=== PATIENT | male | born 1930 | race Caucasian/White ===

== ENCOUNTER 2018-06-23 20:52 | Inpatient (IN) | payer MEDICARE ==
[~2018-06-23 20:52] MED LIST: ISOVUE-370 76%-LOCM 1 ML ONE
[2018-06-23] MEDS ORDERED: Aspirin Chewable 81 MG TAB ONE (21:32)
[2018-06-23] MEDS ORDERED: Nitroglycerin 2% Ointment 1 INCH/1 GM Packet ONE (21:32)
[2018-06-23] MEDS ORDERED: Acetaminophen 500 MG TAB ONE (21:32)
--- NOTE | 2018-06-23 21:37 | RAD ---
FExam: Chest one view HISTORY:Fall, LOC, pain Comparison: None FINDINGS: Lungs: No masses or consolidation. Cardiac silhouette: Normal size Pulmonary vessels: Normal Pleural Spaces: Clear Pneumothorax: None Metallic clips are seen at the right neck. Osseous abnormalities: None of acuity. IMPRESSION: No focal consolidation.
[2018-06-23 21:49] LABS: Hemoglobin 12.6 g/dL (14.0-18.0); Mean Corpuscular HGB CONC 32.9 g/dL (32.0-36.0); Mean Corpuscular Hemoglobin 29.7 pg (27.0-31.0); Mean Corpuscular Volume 90.5 fL (78.0-98.0); Mean Platelet Volume 7.3 fL (7.4-10.4); Platelet Count 284 thou/uL (130-400); RBC Distribution Width 14.1 % (11.5-14.5); Red Blood Cell (RBC) Count 4.23 mill/uL (4.70-6.10); White Blood Cell (WBC) Count 8.9 thou/uL (4.8-10.8)
[2018-06-23 22:05] LABS: ALT (SGPT) 538 U/L (8-55); AST (SGOT) 531 U/L (5-34); Albumin 4.1 g/dL (3.4-4.8); Alkaline Phosphatase 247 U/L (40-150); Anion Gap 18 mmol/L (10-20); BUN (Urea Nitrogen) 16 mg/dL (8.4-25.7); Bilirubin, Total 5.3 mg/dL (0.2-1.2); CK (CPK) 67 U/L (30-200); Calc. Creatinine Clearance 0 mL/min (70-130); Calcium 9.3 mg/dL (7.8-10.44); Carbon Dioxide 22 mmol/L (23-31); Chloride 101 mmol/L (98-107); Estimated GFR-MDRD 70; Globulin 2.7 g/dL (2.4-3.5); Glucose 93 mg/dL (83-110); Potassium 3.2 mmol/L (3.5-5.1); Protein, Total 6.8 g/dL (5.8-8.1); Sodium 138 mmol/L (136-145)
--- NOTE | 2018-06-23 22:07 | CT ---
FCT Face, noncontrast: CLINICAL INDICATION: Fall with facial injury, pain. FINDINGS: There is a large hematoma of the right frontal scalp and right periorbital soft tissues. Th ere is mild displacement of fracture fragmentation involving floor of right orbit. There is communica tion with the right maxillary sinus with a prominent acute fluid level. No evidence of retrobulbar he matoma. Eek intraocular lenses are absent. No acute, displaced nasal bone fracture. Evidence of ac [place] on chronic sphenoid sinusitis. IMPRESSION: Right orbital floor fracture. Prominent right frontal scalp and periorbital soft tissue hematoma. Acute hemorrhagic fluid level of the right maxillary sinus related to right orbital floor fracture. Transcribed Date/Time: 06/23/2018 10:21 PM
--- NOTE | 2018-06-23 22:07 | CT ---
FCT Brain WO Con: 06/23/2018 9:24 PM CLINICAL HISTORY: Syncope and collapse with fall. COMPARISON: None. FINDINGS: Hemorrhage: Mild subarachnoid hemorrhage is seen at the left frontal sulci.. Ventricular system: Compensatory dilatation related to parenchymal volume loss. There is prominence o f the extra-axial spaces. Cerebral parenchyma: Microvascular ischemic disease Midline shift: None. Mass: No mass effect. Calvarium: No depressed calvarial fracture. Visualized Paranasal sinuses: Opacification with fluid level involving right maxillary sinus, and rig ht major sphenoid air cell. Right frontal scalp hematoma. IMPRESSION: Acute subarachnoid hemorrhage. Notification placed to ER care provider at time of dictation.
--- NOTE | 2018-06-23 22:12 | CT ---
FIndication: Pain/Injury COMPARISON: None FINDINGS: Acute fracture/subluxation: Chronic appearing fracture fragmentation is seen involving spinous proces ses of C6 and C7. Subtle lucency with cortication and absence of complete cortical discontinuity invo lving the right lamina of T2 is instantly imaged and likely relates to a vascular canal. Mild irregularity, age indeterminate, is present involving the left occipital condyle. Spinal alignment: Multilevel subluxation as well as prominent kyphosis, likely due to extensive degen erative disease Vertebral body heights: No definite acute compression fracture Cervical spine degenerative change: Severe multilevel degenerative change IMPRESSION: Severe degenerative change and findings which indicate sequela from prior injury involving the cervic al spine. Age-indeterminate mild osseous irregularity at the left occipital condyle. Correlate clinically. Transcribed Date/Time: 06/23/2018 10:23 PM
[2018-06-23 22:19] LABS: Band 9 % (5-11); Hypochromia SLIGHT = 6-15 cells (100X) (0-5/hpf); Lymphocytes 3 % (21-51); MDiff Complete? YES; Monocytes 4 % (0-10); Neutrophil 84 % (42-75); Platelet Morphology Comment Appears Adequate
[2018-06-23 22:41] LABS: INR-International Normal Ratio 1.1; Prothrombin Time 14.1 SEC (12.0-14.7)
[2018-06-23 22:42] LABS: PTT 29.8 SEC (22.9-36.1)
[2018-06-23] MEDS ORDERED: Senokot S 8.6-50 MG TAB PO PRN (23:08)
[2018-06-23] MEDS ORDERED: Acetaminophen 325 MG TAB PO PRN (23:08)
[2018-06-23] MEDS ORDERED: Ondansetron PF 4 MG/2 ML Vial IVP PRN (23:08)
[2018-06-23] MEDS ORDERED: Sodium Chloride 0.9% 1,000 ML IV SCH (23:15)
[2018-06-23] MEDS ORDERED: Sodium Chloride 0.9% (PF) 10 ML VIAL FS PRN (23:29)
[2018-06-24 00:18] VITALS: BMI 23.3
[2018-06-24] MEDS ORDERED: Dextrose 5% in Water 1,000 ML IV PRN (01:15)
[2018-06-24] MEDS ORDERED: Acetaminophen 1,000 MG in Premix Bag 1 BAG IVPB SCH ×2 (01:15→19:00)
[2018-06-24] MEDS ORDERED: Dextrose 50% Abboject 50 ML SYRINGE SLOW IVP PRN (01:15)
[2018-06-24] MEDS ORDERED: Acetaminophen 1,000 MG in Premix Bag 1 BAG IVPB PRN (01:15)
[2018-06-24] MEDS ORDERED: hydrALAZINE 20 MG/ML VIAL SLOW IVP PRN (01:15)
[2018-06-24] MEDS ORDERED: Ondansetron ODT 4 MG TAB PO PRN (01:15)
[2018-06-24] MEDS: Sodium Chloride 0.9% 1,000 ML IV SCH ×3 (01:29→18:59)
[2018-06-24] MEDS ORDERED: Piperacillin/Tazobactam 3.375 GM in Sodium Chloride 0.9% 100 ML IVPB SCH (01:30)
[2018-06-24 01:40] LABS: Lactic Acid 1.2 mmol/L (0.5-2.2)
--- NOTE | 2018-06-24 02:09 | HP ---
REQUESTING PHYSICIAN: Dr. Gan. ATTENDING SURGEON: Dr. Head. CONSULTATIONS: Neurosurgery, Dr. Mills. HISTORY OF PRESENT ILLNESS: The patient is an 87-year-old man who was walking with his when he fell, not a clear story is whether the patient tripped or if he just became dizzy and lightheaded. The patient is unable to tell us what happened. He does know that he was brought to the emergency department and was being admitted. The patient was brought to the emergency department where he underwent evaluation and examination and was noted to have a contusion to his right periorbital area. CT scan showed a subarachnoid hemorrhage on the left and possible acute cervical spinous process fractures. The patient was also noted to have an elevated bilirubin and elevated D-dimer. Evaluation of these started while he was in the emergency room and will continue once he is settled up in the critical care unit. The patient's history is somewhat difficult to obtain as none of his family members were in the emergency department and the ambulance report did state that at some point the patient had chest pain, but otherwise is not helpful. ALLERGIES: NONE. CURRENT MEDICATIONS: 1. Metoprolol. 2. Lumigan. 3. Olmesartan/HCTZ. 4. Clopidogrel. 5. Multivitamin. 6. Atorvastatin. 7. Aspirin. 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 PAST SURGICAL HISTORY: None. SOCIAL HISTORY: The patient lives at home with family. He denies drug, tobacco, or alcohol use. REVIEW OF SYSTEMS: A 10-point review of systems is negative as otherwise stated. The patient denies any recent weight losses, nausea, vomiting, or diarrhea. PHYSICAL EXAMINATION: VITAL SIGNS: Blood pressure 133/75, heart rate 110, respirations 14, oxygen saturation is 96% on room air, and temperature is 99.5. GENERAL: The patient is resting comfortably in bed. He has just been moved to the critical care unit. He is awake, alert, responsive, though does have some confusion and some repetitiveness asking his location. HEENT: Head is normocephalic. Face shows periorbital ecchymosis to the right eye. Otherwise, extraocular motion intact. PERRLA bilaterally. Ears are atraumatic without discharge. Nose, there is scant blood in the left naris. Oropharynx is clear. NECK: Currently immobilized in an [place] collar. His trachea is midline. There is no JVD. CHEST: Clear to auscultation with good inspiratory and expiratory effort. Heart is tachycardic and regular. ABDOMEN: Tender to palpation to the right upper quadrant with hypoactive bowel sounds. PELVIS: Stable. EXTREMITIES: Neurovascularly intact x4. The patient is noted to have a contusion on his anterior aspect of his right knee. There is very minimal swelling. BACK: Nontender and atraumatic. LABORATORY FINDINGS: White blood cell count 8.9, hemoglobin 12.6, hematocrit 38.3, platelets 284. Sodium 138, potassium 3.2, chloride 101, CO2 of 22, BUN 16, creatinine 1.01, glucose 93, lactic acid 2.2, total bilirubin 5.3, AST 531, ALT 538, alkaline phosphatase 247. CK 67, troponin 0.027. PT 14.1, INR 1.1, PTT 29.8. D-dimer 8.92. RADIOGRAPHIC DATA: CT of the brain without contrast shows a mild subarachnoid hemorrhage at the left frontal sulcus and a right frontal scalp hematoma. CT of the facial bones without contrast shows a right orbital floor fracture, prominent right frontal scalp, and periorbital soft tissue hematoma, and acute hemorrhagic fluid level of the right maxillary sinus related to the right orbital floor fracture. CT of the C-spine without contrast shows severe degenerative changes and findings which indicate sequelae of prior injury involving the cervical spine, age indeterminate, mild osseous irregularity at the left occipital condyle. Otherwise, no acute findings. CTA of the chest showed no evidence of pulmonary embolism, pneumothorax, or effusion. The patient was noted to have incidental finding of a nodule which radiology recommends followup in 3 months. AP chest x-ray showed no focal consolidation. ASSESSMENT: 1. Status post fall. 2. Subarachnoid hemorrhage. 3. Right orbital floor fracture. 4. Facial contusions. 5. Hyperbilirubinemia. 6. Transaminitis. PLAN: Plan will be to admit the patient to critical care unit for frequent neuro exams per Neurosurgery's recommendations. He will keep his [place] collar until re-evaluated. We will obtain a right upper quadrant ultrasounds. Keep the patient n.p.o., nonnarcotic pain medication, pulmonary toilet, gastritis and mechanical VTE prophylaxis. The evaluation, examination, laboratory, and radiographic findings will be discussed with Dr. Head after this dictation. Job ID: [id number]
--- NOTE | 2018-06-24 04:10 | CON ---
DATE OF CONSULTATION: This is Flex Larson PA-C dictating a report for Renato Mills MD. This is a 50-minute initial patient evaluation, of which greater than 50% of the exam was spent in counseling and coordinating the patient's care. Remainder of the exam was spent in review of the patient's medical records and formulation of treatment plan. CHIEF COMPLAINT: Status post presumed syncopal fall with trace left frontal traumatic subarachnoid hemorrhage. HISTORY OF PRESENT ILLNESS: Mr. Hernandez is a pleasant 87-year-old male, who presents to [facility] with his family for the above complaints. Apparently, the patient was walking with his earlier today, when he suddenly collapsed. She attempted to catch him, but unfortunately was unable to do this and he struck the right side of his face. He is on Plavix and aspirin for coronary artery disease, though he does not report any stroke history or cardiac surgery or history of VT. He does not use tobacco. He has noticed some fever and chills over the past few days as well. Review of the patient's head CT again notes trace left frontal traumatic subarachnoid hemorrhage without mass effect or midline shift. Review of patient's cervical spine CT notes some listhesis of C3 on C4 as well as some auto fusion at C4-C5 and what may be chronic but age indeterminate C5 and C6 spinous process fractures. PHYSICAL EXAMINATION: The patient is awake, alert, and appropriate. GCS currently is 15. He follows commands equally in all four extremities. He has by report right orbital fracture. Has significant swelling and ecchymosis to the right eye that makes it difficult for the patient to open his eye. 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 His pupils are equal, round, and reactive bilaterally. IMPRESSION AND DIAGNOSES: 1. Status post fall with trace left frontal traumatic subarachnoid hemorrhage. 2. Mild neck pain with possible C5-C6 spinous process fractures. PLAN: I have discussed the patient's case and imaging with Dr. Mills. At this time, the patient will be admitted to the ICU for close neurologic monitoring, although I have let the patient's family know that he likely will not need any type of neurosurgical intervention. We will plan to repeat his head CT at 6:00 a.m. tomorrow or sooner should his neurologic exam change. He is at slight increased risk of increased hemorrhage given the fact that he is on Plavix and aspirin and at this time, coags are pending. We will also place the patient in an [place] collar given his neck pain, although hopefully plan to remove it tomorrow. The patient will be n.p.o. at this time. We will also hold his Plavix and aspirin and likely plan for followup in our office in two weeks with holding his blood thinners and repeat head CT. But at this time, again, we will plan for repeat head CT in the morning or sooner should symptoms dictate and again, the patient and his family are very pleased with the workup at this time. Please call with any changes in patient's neurologic status. Job ID: [id number]
[2018-06-24 06:11] LABS: Band 15 % (5-11); Hemoglobin 10.8 g/dL (14.0-18.0); Hypochromia SLIGHT = 6-15 cells (100X) (0-5/hpf); Lymphocytes 2 % (21-51); MDiff Complete? YES; Mean Corpuscular HGB CONC 32.8 g/dL (32.0-36.0); Mean Corpuscular Hemoglobin 29.3 pg (27.0-31.0); Mean Corpuscular Volume 89.6 fL (78.0-98.0); Mean Platelet Volume 7.5 fL (7.4-10.4); Monocytes 3 % (0-10); Neutrophil 80 % (42-75); Platelet Count 255 thou/uL (130-400); Platelet Morphology Comment Appears Adequate; RBC Distribution Width 14.2 % (11.5-14.5); Red Blood Cell (RBC) Count 3.67 mill/uL (4.70-6.10); White Blood Cell (WBC) Count 15.9 thou/uL (4.8-10.8)
[2018-06-24] MEDS: Piperacillin/Tazobactam 3.375 GM in Sodium Chloride 0.9% 100 ML IVPB SCH ×3 (06:11→18:42)
[2018-06-24 06:13] LABS: Anion Gap 14 mmol/L (10-20); BUN (Urea Nitrogen) 16 mg/dL (8.4-25.7); Calc. Creatinine Clearance 60 mL/min (70-130); Calcium 8.4 mg/dL (7.8-10.44); Carbon Dioxide 20 mmol/L (23-31); Chloride 107 mmol/L (98-107); Estimated GFR-MDRD 85; Glucose 97 mg/dL (83-110); Potassium 3.5 mmol/L (3.5-5.1); Sodium 137 mmol/L (136-145)
--- NOTE | 2018-06-24 07:23 | CT ---
CTA CHEST WITH 3D VOLUME RENDERING WITH CONTRAST: Date: 06/23/18 INDICATION: Syncope with elevated D-Dimer. FINDINGS: There is no large filling defect of the pulmonary arteries to indicate acute pulmonary embolus. Scatt ered vascular disease is present, including coronary artery calcium. No effusion. There is patchy sub pleural opacity of the posterior lungs bilaterally. Nodular density is present within the lingula, wi th a linear oriented morphology. No evidence of pneumothorax. The osseous structures reveal degenerat yasmin change. IMPRESSION: 1. No large, central pulmonary embolus. 2. Reticulonodular opacity of the lingula. Given curvilinear morphology, this could represent an are a of subsegmental atelectasis. However, given a rounded, nodular component, that measures 1.5 cm in a xial dimension, recommend a short-term follow-up CT thorax in 3 months to re-evaluate. 3. Probable dependent atelectasis bilaterally. 4. Additional findings are discussed above. CODE LN.
--- NOTE | 2018-06-24 08:02 | CT ---
CT OF THE BRAIN WITHOUT CONTRAST: Date: 06/24/18 INDICATION: Follow-up subarachnoid hemorrhage. COMPARISON: Prior exam dated 06/23/18. FINDINGS: There is a small amount of subarachnoid hemorrhage layered within a sulcus of the anterior left front al lobe, which is stable to the prior exam. The widening of the extra-axial space overlying the cereb ral convexities, right greater than left, is stable. No midline shift is evident. Generalized cerebra l and cerebellar atrophy is similar appearing. Microvascular disease of the brain is stable. The righ t frontal scalp contusion is similar appearing. The air fluid level within the right maxillary sinus is stable appearing. IMPRESSION: 1. Stable examination of the brain. 2. Subarachnoid hemorrhage layered within a sulcus of the anterior left frontal lobe is stable. 3. Diffuse cerebral and cerebellar atrophy. 4. Extra-axial space widening of the cerebral convexities, right greater than left, is stable. POS: BH
--- NOTE | 2018-06-24 08:03 | ULT ---
GALLBLADDER ULTRASOUND: INDICATION: Pain. FINDINGS: No focal hepatic lesion. There are low-level echogenic gallbladder lumen indicative of sludge and/or gravel-like cholelithiasis. The gallbladder wall is thickened measuring 4-5 mm. Blanco's sign is r eported as positive by the supervisor sleeping bag department. The common duct is mildly dilated at 9 mm, for patient's age . IMPRESSION: 1. Findings which may relate to sludge/cholelithiasis and cholecystitis. Acute versus chronic is no t discerned on the basis of this exam. This could be further evaluated with HIDA scan (nuclear medic ine evaluation). 2. Mildly dilated common duct for patient's age. Correlate with biliary laboratory values. POS: CARLOS
[2018-06-24] MEDS ORDERED: Famotidine 20 MG TAB PO SCH (09:00)
[2018-06-24] MEDS ORDERED: Pantoprazole 40 MG VIAL IVP SCH (09:00)
[2018-06-24] MEDS: Pantoprazole 40 MG VIAL IVP SCH (09:21)
[2018-06-24 10:12] LABS: ALT (SGPT) 374 U/L (8-55); AST (SGOT) 318 U/L (5-34); Albumin 3.4 g/dL (3.4-4.8); Alkaline Phosphatase 181 U/L (40-150); Bilirubin, Direct 3.3 mg/dL (0.1-0.3); Bilirubin, Total 4.2 mg/dL (0.2-1.2); Protein, Total 5.7 g/dL (5.8-8.1)
[2018-06-24 10:26] LABS: Lipase 1174 U/L (8-78)
--- NOTE | 2018-06-24 12:02 | PRG ---
DATE OF SERVICE: DICTATED FOR: Renato Mills MD This is a 10-minute subsequent patient evaluation, in which greater than 50% of the exam was spent counseling and coordinating the patient's care. Remainder of the exam was spent in review of the patient's medical records and review of appropriate imaging studies. SUBJECTIVE: Mr. Hernandez is now hospital day #1 having sustained a fall with a chronic appearing right subdural hematoma, but acute left frontal traumatic subarachnoid hemorrhage. The patient overall states that he is doing fine today. His right eye swelling has improved, but he still has considerable ecchymosis surrounding the eye. He states his neck pain is better today. His GCS currently is 15 as he is alert, oriented to person, place, and time. He has full strength in all the extremities. He has no tenderness to palpation of the cervical spine. From neurosurgical perspective in review of his repeat head CT today shows stability of his chronic right subdural hematoma and stability of the left frontal traumatic subarachnoid hemorrhage. He does not require any type of neurosurgical intervention and I have let him know this. Our trauma colleagues are continuing to workup the patient's multiple medical comorbidities and he has remained off his aspirin and Plavix for remote history of left lower extremity DVT. We will continue to monitor the patient and ideally would like his blood pressure less than 150. We can safely remove his [place] collar. Please call with any change in the patient's neurologic status. Job ID: [id number]
[2018-06-24] MEDS ORDERED: Morphine 2 MG/ML SYRINGE ONE (12:53)
[2018-06-24] MEDS ORDERED: Sodium Chloride 0.9% 10 ML ONE (12:56)
--- NOTE | 2018-06-24 13:53 | NM ---
NUCLEAR MEDICINE HIDA SCAN: CLINICAL HISTORY: Pain. RADIOPHARMACEUTICAL: 5 mCi technetium 99m mebrofenin IV. FINDINGS: 60 minutes of the imaging is performed which reveals retained activity within the hepatic parenchyma and no significant excretion. Gallbladder is not visualized. Subsequently, 2 mg of morphine sulfate w as administered IV with subsequent delayed imaging for 30 minutes. Gallbladder remains nonvisualized. There is excreted activity seen at the level of the common duct with faint bowel activity. IMPRESSION: Nonvisualization of the gallbladder subsequent to administration of morphine sulfate. Findings are co nsistent with cystic duct obstruction. Transcribed Date/Time: 06/24/2018 2:06 PM
[2018-06-24] MEDS ORDERED: PHENYLEPHRINE-NS 100 MCG/ML 10 ML SYRINGE ONE (15:06)
[2018-06-24] MEDS ORDERED: Glycopyrrolate 0.2 MG/ML 5 ML SYRINGE ONE (15:06)
[2018-06-24] MEDS ORDERED: Rocuronium Bromide 10 MG/ML (10ML VIAL) ONE (15:06)
[2018-06-24] MEDS ORDERED: Esmolol 100 MG/10 ML VIAL ONE (15:06)
[2018-06-24] MEDS ORDERED: Dexamethasone 20 MG/5 ML VIAL ONE (15:06)
[2018-06-24] MEDS ORDERED: PROPOFOL 200 MG/20 ML VIAL ONE (15:06)
[2018-06-24] MEDS ORDERED: Ondansetron PF 4 MG/2 ML Vial ONE ×2 (15:06→18:32)
[2018-06-24] MEDS ORDERED: Lidocaine 1% PF 5 ML VIAL ONE (15:06)
[2018-06-24] MEDS ORDERED: Famotidine/PF 20 mg/2ml Vial ONE (16:11)
[2018-06-24] MEDS ORDERED: Fentanyl 100 MCG/2 ML VIAL ONE ×2 (16:11)
[2018-06-24] MEDS ORDERED: Iothalamate Meglumine 60% 50 ML VIAL FS ONE (16:15)
[2018-06-24] MEDS ORDERED: Bupivacaine/Epinephrine 0.25% 30 ML VIAL ONE (16:15)
[2018-06-24] MEDS ORDERED: Ondansetron HCl/PF 4 MG/2 ML Vial IVP PRN (17:57)
--- NOTE | 2018-06-24 18:27 | RAD ---
INTRAOPERATIVE CHOLANGIOGRAM: History: Cholecystectomy, acute cholecystitis. FINDINGS/IMPRESSION: Two spot fluoroscopic intraoperative images of the right upper quadrant during intraoperative cholang iogram demonstrate changes of cholecystectomy. There is opacification of the common bile duct, hepati c duct and some of their branches without filling defects. Contrast is seen in the pancreatic duct an d second portion of the duodenum. POS: JOSÉ
[2018-06-24] MEDS ORDERED: Promethazine HCl 25 MG/ML VIAL ONE (18:31)
[2018-06-24] MEDS ORDERED: Morphine 4 MG/ML VIAL SLOW IVP PRN (19:00)
[2018-06-24] MEDS ORDERED: Morphine 2 MG/ML SYRINGE SLOW IVP PRN (19:00)
[2018-06-24] MEDS ORDERED: Non-Formulary Item 1 EACH (Bimatoprost [Lumigan] 1 DROP) OP SCH (21:00)
[2018-06-24] MEDS ORDERED: Latanoprost 0.005% Ophth Soln 2.5 ml Bottle EA EYE SCH (21:00)
[2018-06-25] MEDS: Piperacillin/Tazobactam 3.375 GM in Sodium Chloride 0.9% 100 ML IVPB SCH ×3 (00:22→12:24)
[2018-06-25 04:39] LABS: #Lymphocytes 0.8 thou/uL (1.20-3.40); #Monocytes 0.2 thou/uL (0.11-0.59); #Neutrophils 11.8 thou/uL (1.40-6.50); %Eosinophils 0.1 % (0.0-10.0); %Monocytes 1.6 % (0.0-10.0); %Neutrophils 92.4 % (42.0-75.0); Hemoglobin 10.1 g/dL (14.0-18.0); Mean Corpuscular HGB CONC 31.3 g/dL (32.0-36.0); Mean Corpuscular Hemoglobin 28.4 pg (27.0-31.0); Mean Corpuscular Volume 90.7 fL (78.0-98.0); Mean Platelet Volume 7.5 fL (7.4-10.4); Platelet Count 272 thou/uL (130-400); RBC Distribution Width 14.2 % (11.5-14.5); Red Blood Cell (RBC) Count 3.58 mill/uL (4.70-6.10); White Blood Cell (WBC) Count 12.7 thou/uL (4.8-10.8)
[2018-06-25 04:56] LABS: ALT (SGPT) 246 U/L (8-55); AST (SGOT) 159 U/L (5-34); Albumin 3.2 g/dL (3.4-4.8); Alkaline Phosphatase 144 U/L (40-150); Anion Gap 12 mmol/L (10-20); BUN (Urea Nitrogen) 13 mg/dL (8.4-25.7); Bilirubin, Direct 1.1 mg/dL (0.1-0.3); Bilirubin, Total 1.6 mg/dL (0.2-1.2); Calc. Creatinine Clearance 72 mL/min (70-130); Calcium 8.5 mg/dL (7.8-10.44); Carbon Dioxide 21 mmol/L (23-31); Chloride 108 mmol/L (98-107); Estimated GFR-MDRD Greater than 90; Glucose 108 mg/dL (83-110); Lipase 293 U/L (8-78); Magnesium 1.7 mg/dL (1.6-2.6); Phosphorus 2.2 mg/dL (2.3-4.7); Potassium 3.8 mmol/L (3.5-5.1); Sodium 137 mmol/L (136-145)
[2018-06-25] MEDS: Sodium Chloride 0.9% 1,000 ML IV SCH (06:06)
[2018-06-25 07:30] VITALS: TEMP 98.5
[2018-06-25] MEDS: Pantoprazole 40 MG VIAL IVP SCH (07:50)
[2018-06-25] MEDS ORDERED: Multivit, Therapeutic 1 TAB PO SCH (09:00)
[2018-06-25] MEDS ORDERED: Hydrochlorothiazide 25 MG TAB PO SCH (09:00)
[2018-06-25] MEDS ORDERED: Atorvastatin Calcium 40 MG TAB PO SCH (09:00)
[2018-06-25] MEDS ORDERED: Potassium Phosphate 30 MMOL in Sodium Chloride 0.9% 250 ML 250 ML IVPB SCH (09:00)
[2018-06-25] MEDS ORDERED: traMADol HCl 50 MG TAB PO PRN ×2 (09:01)
--- NOTE | 2018-06-25 09:01 | OP ---
DATE OF PROCEDURE: 06/24/2018 PREOPERATIVE DIAGNOSES: 1. Acute cholecystitis with cholelithiasis. 2. Qualitative platelet dysfunction secondary to Plavix. POSTOPERATIVE DIAGNOSES: 1. Acute cholecystitis with cholelithiasis. 2. Qualitative platelet dysfunction secondary to Plavix. PROCEDURE PERFORMED: Laparoscopic cholecystectomy with intraoperative cholangiogram. ANESTHESIA: General endotracheal. ESTIMATED BLOOD LOSS: Less than 50 mL. FLUIDS GIVEN: 800 mL crystalloids and 6 pack of platelets. COMPLICATIONS: None apparent at time of operation. INDICATIONS FOR OPERATION: This is an 87-year-old man who was admitted following a fall. Incidentally, the patient is found also with transaminitis with right upper quadrant abdominal pain. Clinical radiographic examination was consistent with acute cholecystitis for which the patient was brought to the operating room for cholecystectomy. Intraoperative cholangiogram was also warranted due to the elevated LFTs and total bilirubin. Findings are consistent with dilated gallbladder in the usual anatomic location partially encased by omental adhesions. Cholangiogram also reveals no significant filling defects. DESCRIPTION OF PROCEDURE: Informed consent obtained from the patient, who was brought to the operating room and placed in supine position. Following general anesthesia, abdomen was sterilely prepped and draped in usual fashion. The skin below the umbilicus was infiltrated with 0.25% Marcaine with epinephrine. A small curvilinear infraumbilical incision was made using 11 scalpel. Umbilical stalk was grasped with Ave and elevated. Veress needle was inserted through the incision and placed in the peritoneal cavity through which the abdomen was insufflated with 3 L of CO2 gas. Intraabdominal pressure was noted at 2 mmHg. Following abdominal insufflation, Veress needle was removed and replaced with a 5 mm trocar introduced using a Visiport under laparoscopy. Laparoscopy confirmed proper placement of the port. No injuries to underlying structures. Additional laparoscopy reveals gallbladder in the usual anatomic location partially encased by omental adhesions. Under direct laparoscopy, a 12 mm epigastric and two 5 mm right lateral subcostal ports were placed after the overlying skin were infiltrated with 0.25% Marcaine with epinephrine and appropriate incision was made. The patient was placed in a reverse Trendelenburg position, rotated to his left. I introduced a [place] dissector with cautery using this to take down omental adhesions. Prestige grasper was introduced through the right lateral subcostal port grasping the fundus of the gallbladder which was elevated cephalad. A second Prestige grasper introduced through the right medial subcostal port grasping the Alejandro pouch which was retracted laterally. The cystic duct was carefully dissected free from surrounding structures at the triangle of Calot. I applied one clip at the junction of the cystic duct and gallbladder. The cystic artery was dissected free from surrounding structures and divided between clips. Two clips were applied proximally, one clip at the junction of the cystic artery and gallbladder. I then introduced a cholangiocatheter through the right upper quadrant through an introducer needle. This was flushed first with saline. Cystotomy was made proximal to securing clip using EndoShear. The cholangiocatheter was inserted into the cystic duct and lumen securing this with a single clip. Cholangiogram was completed using 10 mL of Conray contrast, finding no filling defects. TOTAL FLUOROSCOPY TIME 56 seconds. Following cholangiography, the securing clip was removed and the catheter was removed from the peritoneal cavity. The cystic duct was then divided between clips, applying 2 clips proximally. The gallbladder itself was removed from the liver bed using cautery with good hemostasis. Finding no other pathology, laparoscopy was terminated. A 1 x 2 inch piece of fibrillar was placed in the gallbladder fossa given the patient was on Plavix. Fascia of the epigastric port was closed using 0 Vicryl suture and Endoclosure device on the laparoscopy. The abdomen was desufflated. All ports and instruments removed and accounted for. Skin incisions were closed using 4-0 Monocryl suture in subcuticular fashion. Dermabond was applied over incisional closure. The patient tolerated the operation without any apparent complication and was returned to recovery room in satisfactory condition. Job ID: [id number]
--- NOTE | 2018-06-25 11:12 | CON ---
DATE OF CONSULTATION: REASON FOR CONSULTATION: Right orbital floor fracture. Now I request to the trauma service. CHIEF COMPLAINT: Facial pain and swelling. HISTORY OF PRESENT ILLNESS: This is an 87-year-old man, who has had a fall from standing yesterday after became dizzy. The patient was brought to the emergency department and admitted by the trauma service. He went evaluation for a CT scan of his right orbital area due to ecchymosis. CT scan showed subarachnoid hemorrhage as well. The CT scan also showed right orbital floor fracture. The patient has no complaints of double vision or blurred vision at this time. No complaints of numbness as well. ALLERGIES: NONE. CURRENT MEDICATIONS: Listed. PAST MEDICAL HISTORY: Hypertension and history of DVT. PAST SURGICAL HISTORY: None. SOCIAL HISTORY: Denies alcohol, tobacco, or drug abuse. REVIEW OF SYSTEMS: From the maxillofacial standpoint, no double vision. No blurred vision. No difficulty breathing. No malocclusion. No numbness. No paresthesia. PHYSICAL EXAMINATION: VITAL SIGNS: The patient's vital signs are stable. GENERAL: He is awake, alert, and oriented x3. He is currently in no acute distress. He is resting comfortably in his hospital bed. HEENT: He does have a good amount of right eye subconjunctival hemorrhage as well as periorbital ecchymosis and edema around the right eye. His occlusion is good. His nares are patent bilaterally. No crepitus of the nasal bones. His dentition is intact. Cranial nerves are intact. CT scan of the face shows mildly displaced right orbital floor fracture with air-fluid levels in the right maxillary sinus. ASSESSMENT: Right orbital floor fracture, minimally displaced. PLAN: I do not feel this fracture will need operative management. I would, however, like the patient to follow up with my clinic in 1 week. Job ID: [id number]
[2018-06-25] MEDS ORDERED: Acetaminophen 500 MG TAB PO SCH (12:00)
--- NOTE | 2018-06-25 14:32 | PRG ---
DATE OF SERVICE: 06/25/2018 This is Flex Larson PA-C dictating a report for Renato Mills MD. This is a 10-minute subsequent patient evaluation, in which greater than 50% of the exam was spent counseling and coordinating the patient's care. Remainder of the exam was spent in review of patient's medical records, formulation of treatment plan. Mr. Hernandez is hospital day #3, sustained a left trace traumatic subarachnoid hemorrhage with chronic right subdural hematoma. The patient is ready to go home. He has no neck complaints or headache complaints. GCS currently is 15 and he follows commands equally in all 4 extremities. Ecchymosis to his right eye is also significantly improving. Pupils are equal, round, and reactive to light bilaterally. From neurosurgical standpoint, we will sign off with repeat head CT in 2 weeks in our clinic. Please call with any changes in the patient's neurologic status and again he needs to remain off all blood thinners until cleared by Neurosurgery. Job ID: [id number]
--- NOTE | 2018-06-25 14:38 | PRG ---
DATE OF SERVICE: 06/25/2018 SUBJECTIVE: The patient is sitting up comfortably in bed, postoperative day #2, hospital day #2. The patient reports abdominal pain as improved, ambulating with assistance, reported flatulence and bowel movement, tolerating p.o. well, advancing diet as tolerated. OBJECTIVE: VITAL SIGNS: Stable with the exception of elevated blood pressure, most recently at 164/85. HEENT: Right-sided hematoma over orbit present. Vision grossly normal. Cranial nerves grossly intact. CHEST AND ABDOMEN: Flat with good inspiratory and expiratory ratio. No respiratory distress. Abdomen is nondistended and nontender to palpation except for mildly over the right upper quadrant, improved from the day before. Incisions are clean, dry, and intact. EXTREMITIES: [place], nonedematous, and neurovascularly intact x4. LABORATORY DATA: Reveals a reduced white blood cell count of 12.7, improved direct bilirubin at 1.1, AST 159, ALT 246, lipase 293. Blood culture positive, 2/2 for E coli. ASSESSMENT: 1. Status post laparoscopic cholecystectomy performed due to diagnosis of acute cholecystitis. 2. Orbital wall fracture. 3. Mild pancreatitis, resolving. 4. Subarachnoid hemorrhage. 5. Facial contusions. 6. Hyperbilirubinemia, resolving. 7. Transaminitis, resolving. PLAN: Continue supportive care therapy with PT, OT, stable for discharge today, pending inpatient approval, IV antibiotics for bacteremia for [address] Davis Head was present and seen the patient during morning rounds this morning. Job ID: [id number]
[2018-06-25 17:45] VITALS: BP 150/73
--- NOTE | 2018-06-26 08:21 | DIS ---
DATE OF ADMISSION: 06/24/2018 DATE OF DISCHARGE: 06/25/2018 RESIDENT: Liu Caro DO IMAGING: Chest x-ray is significant for no focal consolidation in lung bases. Brain CT is significant for acute subarachnoid hemorrhage. C-spine CT is significant for severe degenerative changes and findings which indicate sequelae from prior injury involving C-spine, age-indeterminate mild osseous irregularity of the left occipital condyle. Facial bone CT, prominent right frontal scalp periorbital soft tissue edema, acute hemorrhagic fluid level in the right maxillary sinus related to right orbital floor fracture. Intraoperative cholangiogram revealed no obstruction to the hepatic duct. HIDA scan revealed no visualization of the gallbladder, most likely cystic duct obstruction. PROCEDURES: Laparoscopic cholecystectomy. DISCHARGE MEDICATIONS: 1. Lipitor 40 mg p.o. daily. 2. Centrum Silver 1 tablet p.o. daily. 3. Olmesartan and hydrochlorothiazide 1 each p.o. daily. 4. Lumigan 1 drop ophthalmic at bedtime. 5. Acetaminophen 1000 mg p.o. q.6 hours p.r.n. 6. Zosyn IV in for 7 additional days. 7. Senokot 2 tabs p.o. b.i.d. p.r.n. 8. Ultram 50 mg p.o. q.6 hours p.r.n. DISCONTINUED MEDICATIONS: Clopidogrel 75 mg and aspirin 81 mg for 14 days until followup with Neurosurgery. PRIMARY DIAGNOSIS: Status post laparoscopic cholecystectomy performed due to diagnosis of acute cholecystitis. SECONDARY DIAGNOSES: 1. Orbital wall fracture. 2. Mild pancreatitis. 3. Subarachnoid hemorrhage. 4. Facial contusions. 5. Hyperbilirubinemia. 6. Transaminitis. HISTORY OF PRESENT ILLNESS/HOSPITAL COURSE: This is an 87-year-old male who originally presented to the ER for evaluation for fall. Trauma Services was consulted. A subarachnoid hemorrhage was noticed on CT scan. Neurosurgery was consulted. Subarachnoid hemorrhage was stable and non transforming. No focal neurologic defects. Orbital wall fractures were noted and mop man was consulted. The patient continued to improve, was noted to have acute cholecystitis in need of a laparoscopic cholecystectomy, this was performed. The patient tolerated the procedure well. E coli bacteremia was noted. Most likely source would be septic gallbladder. The patient was started on IV Zosyn. Recommended 7 days of continued IV therapy. The patient amenable to inpatient rehab. This would be best for patient to improve in strength and function, received PT, OT, and follow up closely outpatient. DISCHARGE INSTRUCTIONS: Location: Inpatient rehab. Diet: Heart healthy, low-sodium. Activity: As tolerated, PT and OT therapy. Followup: 1. Followup with Dr. Davis Head, in 1-[address] Max Pineda in 1-2 weeks. This patient was seen and evaluated during morning rounds by Dr. Davis Head. Job ID: [id number] [facility]
[2018-06-26] MEDS ORDERED: Non-Formulary Item 1 EACH (Olmesartan/Hydrochlorothiazide [Olmesartan-Hctz 20-12.5 Mg Tab PO SCH (09:00)
[2018-06-26] MEDS ORDERED: Non-Formulary Item 1 EACH (Folic Acid/Multivit-Min/Lutein [Centrum Silver Chewable] 1 TAB PO SCH (09:00)
--- NOTE | 2018-06-26 11:18 | PRG ---
DATE OF SERVICE: 06/25/2018 TIME SPENT: This is a 30-minute initial hospital visit note, in which 30 minutes were spent reviewing the imaging, record evaluation, examination of the patient, formulation of plan. Greater than 50% time was spent in counseling on David Hernandez. SUBJECTIVE: I saw Mr. Hernandez yesterday and he was sitting in a bedside chair. Neurologically, he was intact. He did want to leave the hospital and frankly from a neurologic standpoint looks to be doing quite well. He had scattered traumatic subarachnoid hemorrhage on his head CT related to his fall and a very non worrisome small right extra-axial collection. He was on blood thinners and I would be fine with dismissal whenever acceptable from our trauma team standpoint. I will arrange followup in my clinic in approximately 2-[address] head CT. DIAGNOSIS: Traumatic subarachnoid hemorrhage, status post fall. Job ID: [id number]
== END 2018-06-25 17:46 | DRG 417 ==
LOC: ERS 20:52 → CCU 06-24 00:08 → SJJU 06-24 14:19
PROVIDERS: ADMIT Surgery; ATTEND Surgery
PROC: 0FT44ZZ Resection of Gallbladder, Percutaneous Endoscopic Approach (ICD-10-PCS; principal; 2018-06-24)
PROC: BF101ZZ Fluoroscopy of Bile Ducts using Low Osmolar Contrast (ICD-10-PCS; 2018-06-24)
DX: K80.00 Calculus of gallbladder with acute cholecystitis without obstruction (principal); S06.6X9A Traumatic subarachnoid hemorrhage with loss of consciousness of unspecified duration, initial encounter; K85.90 Acute pancreatitis without necrosis or infection, unspecified; S02.31XA Fracture of orbital floor, right side, initial encounter for closed fracture; W19.XXXA Unspecified fall, initial encounter; R40.2410 Glasgow coma scale score 13-15, unspecified time; S00.83XA Contusion of other part of head, initial encounter; E80.6 Other disorders of bilirubin metabolism; R74.0 Nonspecific elevation of levels of transaminase and lactic acid dehydrogenase [LDH]
CPT/HCPCS: 36415; 36416; 36430; 47532; 70450; 70486; 71045; 71275; 72125; 76705; 78227; 80048; 80053; 80076; 82150; 82550; 83605; 83690; 83735; 84100; 84484; 85025; 85379; 85610; 85730; 86900; 86901; 87040; 87077; 87149; 87186; 87804; 88304; 93005; 94760; A9537; C9113; G0390; J0131; J0360; J1610; J2270; J2405; J2543; J2550; J3010; J7050; P9035; Q9961; Q9966; S0028

== ENCOUNTER 2018-07-08 14:18 | Emergency (ER) | payer MEDICARE ==
--- NOTE | 2018-07-08 16:02 | CT ---
CT HEAD WITHOUT IV CONTRAST COMPARISON: 06/24/2018 HISTORY: Occipital headache. Neck pain. TECHNIQUE: Axial CT imaging at 5 mm intervals from vertex through skull base without contrast FINDINGS: Expected evolutionary changes in subarachnoid hemorrhage left anterior frontal lobe are again seen wi th only subtle density now present in this region. There has been interval increase in size of extra-axial collection along the right cerebral convexity when compared to prior exam. Greatest trans verse dimension on today's exam is 1.3 cm and on the prior study was 0.7 cm. Mild prominence of the extra-axial CSF space anteriorly along the left cerebral convexity is unchanged and minimal. This cou ld potentially be related to volume loss. No new intraparenchymal hemorrhage is seen. The ventricular system is normal in size, shape, and position. Mild cerebral volume loss is again see n. Mild chronic small vessel ischemic changes are again seen. There is no midline shift. Mucosal thickening right sphenoid sinus with increased density material is again seen which may be re lated to inspissated secretions or fungal infection. Mucosal thickening is present in the right maxillary antrum, and the previously seen air-fluid level has resolved. Osseous structures appear intact. IMPRESSION: 1. Increase in size of the right extra-axial subdural collection which may represent either enlargeme nt of a chronic subdural hematoma or hygroma. Greatest transverse dimension is approximately 1.3 cm. There is no midline shift, but there is mild mass effect on the right cerebral hemisphere. 2. Expected evolutionary changes in left anterior frontal subarachnoid hemorrhage. 3. Diffuse cerebral and cerebellar volume loss.
[2018-07-08 16:11] LABS: #Lymphocytes 1.9 thou/uL (1.20-3.40); #Monocytes 0.7 thou/uL (0.11-0.59); #Neutrophils 3.2 thou/uL (1.40-6.50); %Basophils 0.7 % (0.0-1.0); %Eosinophils 0.6 % (0.0-10.0); %Lymphocytes 32.3 % (21.0-51.0); %Monocytes 12.1 % (0.0-10.0); %Neutrophils 54.3 % (42.0-75.0); Hemoglobin 10.2 g/dL (14.0-18.0); Mean Corpuscular HGB CONC 32.9 g/dL (32.0-36.0); Mean Corpuscular Hemoglobin 29.3 pg (27.0-31.0); Mean Corpuscular Volume 88.9 fL (78.0-98.0); Mean Platelet Volume 6.4 fL (7.4-10.4); Platelet Count 477 thou/uL (130-400); RBC Distribution Width 13.9 % (11.5-14.5); White Blood Cell (WBC) Count 5.8 thou/uL (4.8-10.8)
[2018-07-08 16:23] LABS: PTT 30.6 SEC (22.9-36.1); Prothrombin Time 13.2 SEC (12.0-14.7)
[2018-07-08] MEDS ORDERED: Labetalol HCl 100 MG/20 ML VIAL ONE (16:36)
[2018-07-08 16:40] LABS: ALT (SGPT) 21 U/L (8-55); AST (SGOT) 21 U/L (5-34); Albumin 3.5 g/dL (3.4-4.8); Alkaline Phosphatase 114 U/L (40-150); Anion Gap 13 mmol/L (10-20); BUN (Urea Nitrogen) 10 mg/dL (8.4-25.7); Bilirubin, Total 0.4 mg/dL (0.2-1.2); Calc. Creatinine Clearance 0 mL/min (70-130); Calcium 9.5 mg/dL (7.8-10.44); Carbon Dioxide 25 mmol/L (23-31); Chloride 101 mmol/L (98-107); Estimated GFR-MDRD Greater than 90; Globulin 3.1 g/dL (2.4-3.5); Glucose 96 mg/dL (83-110); Potassium 3.6 mmol/L (3.5-5.1); Protein, Total 6.6 g/dL (5.8-8.1); Sodium 135 mmol/L (136-145)
--- NOTE | 2018-07-08 18:01 | CON ---
DATE OF CONSULTATION: 07/08/2018 Mr. Hernandez is a very pleasant 87-year-old man who was actually admitted 2 weeks ago after fall and saw Dr. Mills in [place] inhouse at that time for scattered traumatic subarachnoid hemorrhage in the setting of Plavix and aspirin. He came in today for occipital posterior headache that began last night and worsened this morning. He was brought into the ER. CT scanning back 2 weeks ago did also show a right-sided hygroma with a depth of roughly 7 mm, but no acute bleeding present. Repeat head CT today, however, shows maximum depth of about 1.4 cm. There has been interval size increase of the actual fluid collection, but that is still again the vast majority being chronic hygroma looking density with some newest scattered areas of hyperdensity, likely indicating more acute or subacute blood, but again this is scant. There is no significant mass effect on the underlying parenchyma. There is no midline shift speak of. Neurologically at bedside, he looks excellent. He has no confusion. His headaches actually also improved. He has equal strength in the bilateral upper and bilateral lower extremities. There is no sensory disturbance in any extremity or trunk that I concern. Pupils are equal, round, and reactive to light. Extraocular movements are intact. He did not take his blood pressure medication for the last few days, and it has been running somewhat high. Systolic pressures upon presentation were in the 180s and 190s. This have been corrected with labetalol. I instructed him to continue his blood pressure medications, but needs to stay off the Plavix and aspirin until further noticed. I do feel he is likely safe to go home. We will go ahead and discharge from the emergency department with plan to follow up in our clinic on to check his status. I think he will need imaging on . We will likely get this next week for some time thereafter. Job ID: [id number]
== END 2018-07-08 17:19 | disposition home or self-care (01) ==
LOC: ERS 14:18
DX: S06.5X0A Traumatic subdural hemorrhage without loss of consciousness, initial encounter (principal); I10 Essential (primary) hypertension; Z79.82 Long term (current) use of aspirin; Z79.899 Other long term (current) drug therapy; X58.XXXA Exposure to other specified factors, initial encounter
CPT/HCPCS: 36415; 70450; 80053; 85025; 85610; 85730; 86850; 86900; 86901; 94760; 96374

== ENCOUNTER 2018-07-17 10:36 | Outpatient (CLI) | payer MEDICARE ==
--- NOTE | 2018-07-17 11:47 | CT ---
CT HEAD WITHOUT CONTRAST: INDICATIONS: Intracranial hemorrhage. Subdural hemorrhage. Followup. COMPARISON: 07/08/2018 FINDINGS: Redemonstration of extraaxial density overlying the right convexity. There is nondependent, newly de veloped hyperdensity within the extraaxial collection, most notably overlying the right frontal lobe. This may relate to a minute component of re-bleed. The overall thickness of the right subdural col lection has increased in volume, approximately 17 mm in thickness. There is leftward subfalcine benny iation, which measures 3-4 mm. Prior minute volume of subarachnoid hemorrhage has resolved. Stable presumed osseous deformity at the floor of the right orbit, although incompletely assessed on the bas is of this exam. IMPRESSION: Increasing volume of complex collection of the right subdural space overlying the right convexity, me asuring 17 mm in thickness compared to 12 mm on prior exam, consistent with a mixed density hematoma. There is interval development of internal hyperdensity to indicate a component of internal re-bleed . Recommend continued imaging followup. POS: LOLI
== END 2018-07-17 10:37 | disposition home or self-care (01) ==
LOC: CT 10:36
PROVIDERS: ATTEND Neurological Surgery
DX: I62.03 Nontraumatic chronic subdural hemorrhage (principal)
CPT/HCPCS: 70450

== ENCOUNTER 2018-07-23 16:29 | Observation (INO) | payer MEDICARE ==
[2018-07-23 17:27] LABS: #Eosinphils 0.1 thou/uL (0.0-0.7); #Lymphocytes 1.4 thou/uL (1.20-3.40); #Monocytes 0.6 thou/uL (0.11-0.59); #Neutrophils 6.1 thou/uL (1.40-6.50); %Basophils 0.3 % (0.0-1.0); %Lymphocytes 16.9 % (21.0-51.0); %Monocytes 7.6 % (0.0-10.0); %Neutrophils 74.3 % (42.0-75.0); Hemoglobin 11.7 g/dL (14.0-18.0); Mean Corpuscular Hemoglobin 29.8 pg (27.0-31.0); Mean Corpuscular Volume 90.2 fL (78.0-98.0); Mean Platelet Volume 7.6 fL (7.4-10.4); Platelet Count 324 thou/uL (130-400); RBC Distribution Width 14.1 % (11.5-14.5); Red Blood Cell (RBC) Count 3.94 mill/uL (4.70-6.10); White Blood Cell (WBC) Count 8.3 thou/uL (4.8-10.8)
[2018-07-23 17:35] LABS: PTT 27.9 SEC (22.9-36.1); Prothrombin Time 13.6 SEC (12.0-14.7)
--- NOTE | 2018-07-23 17:35 | CT ---
CT Brain WO Con History: [Subdural hemorrhage] Comparison: CT brain 07/17/2018 Findings: The complex right subdural hematoma has not increased in size. On the prior examination thi s measures up to 17 mm, unchanged. No new acute superimposed hemorrhage is appreciated. 3 mm midline shift is similar. No acute intraparenchymal hemorrhage. Mild atrophy. Paranasal sinuses and mastoids are clear. 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 No change in the 3 mm right to left midline shift.
[2018-07-23] MEDS ORDERED: levETIRAcetam 500 MG/100 ML PREMIX BAG ONE (17:37)
[2018-07-23 17:50] LABS: CKMB 1.2 ng/mL (0-6.6); Troponin I 0.014 ng/mL (< 0.028)
[2018-07-23 18:34] LABS: ALT (SGPT) 11 U/L (8-55); AST (SGOT) 16 U/L (5-34); Albumin 3.9 g/dL (3.4-4.8); Alkaline Phosphatase 103 U/L (40-150); Anion Gap 19 mmol/L (10-20); BUN (Urea Nitrogen) 16 mg/dL (8.4-25.7); Bilirubin, Total 0.5 mg/dL (0.2-1.2); Calc. Creatinine Clearance 0 mL/min (70-130); Calcium 9.6 mg/dL (7.8-10.44); Carbon Dioxide 17 mmol/L (23-31); Chloride 99 mmol/L (98-107); Estimated GFR-MDRD 71; Globulin 2.8 g/dL (2.4-3.5); Glucose 115 mg/dL (83-110); Potassium 3.5 mmol/L (3.5-5.1); Protein, Total 6.7 g/dL (5.8-8.1); Sodium 131 mmol/L (136-145)
--- NOTE | 2018-07-23 19:23 | CON ---
DATE OF CONSULTATION: 07/23/2018 HISTORY OF PRESENT ILLNESS: Mr. Hernandez is an 87-year-old man. He is known to us for previous ER evaluation for headache with identified right-sided frontotemporal convexity hygroma. This was followed in the outpatient setting, most recently on the 11 of July with a repeat CT then and another on the showing more or less stable hygroma with maybe some small hyperdensity that have been there throughout. There may be a small volume increase on the , but then he presented today via EMS after found him unresponsive in the home. EMS witnessed single seizure and he was brought to the emergency department. Ativan was administered in the field. GCS was recorded by the ER physician as an 8. This likely could have been from Ativan or postictal state and likely just a combination of the two. His blood pressures have been normotensive in the 140 systolic the duration of his stay. Upon my arrival at the bedside, patient is starting to arouse. He spoke and answers appropriately for the questions from the nursing staff and the ER physician and was moving all 4 extremities. I addressed him. He opens his eyes and looked straight at me. I asked if he recalled clinic, but he does not acknowledge one way or the other. PHYSICAL EXAMINATION: NEUROLOGICAL : On exam, he follows simple commands and does move all 4 extremities. There is no obvious facial droop. Pupils are equally round, reactive to light. Extraocular movements are intact. PLAN: At this time is to admit to the Hospitalist Service for further seizure workup and to rule out other possible causes. He has no seizure history prior, so it is certainly a possibility that this is a reaction to blood products or hygromatous fluid in the brain, although midline shift and compression of underlying parenchyma is minimal at most. We are not at the time pursuing operative management, though this could come to pass. I recommend n.p.o. until tomorrow morning's reassessment. The patient has been loaded on 1000 mg of Keppra and will continue 500 mg b.i.d. for seizure prophylaxis going forward. We will look for improved neurologic function in the morning. Job ID: [id number]
[2018-07-23] MEDS ORDERED: Latanoprost 0.005% Ophth Soln 2.5 ml Bottle EA EYE SCH (21:00)
[2018-07-23] MEDS ORDERED: Ondansetron ODT 4 MG TAB PO PRN (21:30)
[2018-07-23] MEDS ORDERED: Ondansetron PF 4 MG/2 ML Vial IVP PRN (21:30)
[2018-07-23 22:00] LABS: Bilirubin Negative (Negative); Blood, Urine Negative (Negative); Clarity CLEAR (Clear); Glucose, Urine (Dipstick) Negative (Negative); Leukocyte Negative (Negative); Nitrite Negative (Negative); Protein, Urine (Dipstick) Trace mg/dL (Neg-Trace); Specific Gravity, Urine 1.016 (1.002-1.036); Urobilinogen 0.2 mg/dL (0.2-1.0); pH, Urine 5.5 (5.0-9.0)
[2018-07-23 22:02] LABS: Bacteria/HPF None Seen HPF (None Seen); Hyaline Casts/LPF 7-10 HYALINE CAST LPF (0-3 Hyaline); Pathc Cast-AUWi Flag 1.49 (0-2.49); WBC/HPF 0-3 HPF (0-3)
[2018-07-23 22:20] LABS: Squamous Epithelial 0-3 HPF (0-3)
[2018-07-23 22:22] LABS: Urine Culture Reflex No No
[2018-07-23] MEDS: Atorvastatin Calcium 40 MG TAB PO SCH (22:49)
[2018-07-23] MEDS: levETIRAcetam 500 MG TAB PO SCH (22:50)
[2018-07-23] MEDS ORDERED: Acetaminophen 500 MG TAB PO SCH (23:59)
[2018-07-24 00:22] VITALS: BMI 23.1
[2018-07-24] MEDS ORDERED: Morphine 4 MG/ML VIAL SLOW IVP SCH (00:45)
--- NOTE | 2018-07-24 01:04 | PDOC.EVN ---
Event Note - Event Note Event Note: Patient continues to complain of needing to urinate but cannot; initial bladder scan revealed 540 cc, in and out cath resulted in approx 500 cc removed. Again , patient has trouble voiding and per bladder scan has > 500cc ;will place [place] at this time
[2018-07-24] MEDS ORDERED: Metoprolol Tartrate 50 MG TAB PO SCH (01:45)
--- NOTE | 2018-07-24 04:47 | HP ---
PRIMARY CARE DOCTOR: Max Pineda MD. CODE STATUS: Full code. TIME OF EVALUATION: 9 p.m. CHIEF COMPLAINT: Acute seizures. HISTORY OF PRESENT ILLNESS: This is an 87-year-old male patient, with past medical history of hyperlipidemia, high cholesterol, hypertension, AFib, came to the hospital after having an episode of seizure, this is the first time this happened. Symptoms started around 1 p.m., the patient was postictal and has been confused after the seizure. The patient has a history of intracranial bleeding with subdural hematoma. The patient has been treated with Keppra and we will continue on a regular basis at 500 b.i.d. Symptoms were severe. Neurosurgery to see the patient. REVIEW OF SYSTEMS: Unable to obtain. The patient is confused, uncooperative to interview. ALLERGIES: NO KNOWN DRUG ALLERGIES. REPORTED MEDICATIONS: 1. Metoprolol. 2. Lumigan. 3. Clopidogrel. 4. Multivitamin. 5. Atorvastatin. 6. Aspirin. 7. Benicar. 8. Nitroglycerin. PHYSICAL EXAMINATION: VITAL SIGNS: On presentation, blood pressure 147/64 with heart rate 121, respiratory rate was 20, temperature 98. GENERAL APPEARANCE: The patient is alert, disoriented, in mild distress. HEENT: Eyes, normal conjunctivae. Moist oral mucosa. Anicteric. No JVD. RESPIRATORY: Bilateral air entry. No rales. No wheezes. Symmetric expansion. CARDIOVASCULAR: The patient is tachycardic with regular rhythm. No murmurs. No gallop. EXTREMITIES: Bilateral leg edema. ABDOMEN: Soft, normal bowel sounds. MUSCULOSKELETAL: Baseline range of motion and strength. No tenderness. SKIN: Warm, intact. No pallor. No rash. No redness. Peripheral pulses are present. Capillary refill seems to be intact. NEUROLOGIC: Unable to fully explore. The patient is confused and noncooperative to physical exam. There is no evidence of any new focal weakness. Baseline speech. Cranial nerves seems to be intact. PSYCHIATRIC: The patient is in good mood. No anxiety. Optimal judgment. IMAGING STUDIES: EKG; the patient has accelerated junctional rhythm at the rate of 109, IA was undetermined with QRS 94, QT corrected 474. Brain CT was done. The patient has no significant changes from subacute chronic right subdural collection and no change in the midline shift from previous CT. LABORATORY DATA: Reviewed. The patient has white count 8.3 with hemoglobin 11.7, MCV 90.2, platelet count 324. Coagulation; PT 13.6 with INR 1.0, and PTT 27.9. Chemistry; sodium 131, potassium 3.5, chloride 99, carbon dioxide was 17 with anion gap 19, BUN 16, creatinine 1.0, GFR 71, glucose 115, calcium 9.6, magnesium 1.7. LFTs were negative. Troponin was negative. Urine was done, it was negative. ASSESSMENT AND PLAN: The patient will be placed in the hospital with following medical problems: 1. Acute seizure secondary to possible previous intracranial bleeding sequela, the patient has been started on Keppra. We will continue for now. Neurosurgery has been consulted. We will follow recommendations. 2. Acute encephalopathy, likely secondary to postictal state and also possible residual effect of anticonvulsant medications, we will give him support with fall, seizures, aspiration precautions. 3. Hyponatremia, this is mild. Sodium 131. This will be followed. We will replace as needed. 4. Hyperglycemia with glucose 115. No history of diabetes. We will monitor. No need for any acute intervention at this point. 5. The patient has a history of chronic normocytic anemia, unclear etiology. This can be followed as an outpatient. 6. History of intracranial bleeding. The CT did not show any changes when compared with previous one. Neurosurgery on the case. No need for any acute intervention on this problem. 7. Deep venous thrombosis prophylaxis. Job ID: [id number]
[2018-07-24 05:17] LABS: #Monocytes 0.7 thou/uL (0.11-0.59); #Neutrophils 9.6 thou/uL (1.40-6.50); %Basophils 0.1 % (0.0-1.0); %Eosinophils 0.1 % (0.0-10.0); %Lymphocytes 9.1 % (21.0-51.0); %Monocytes 6.1 % (0.0-10.0); %Neutrophils 84.6 % (42.0-75.0); Hemoglobin 12.3 g/dL (14.0-18.0); Mean Corpuscular HGB CONC 31.9 g/dL (32.0-36.0); Mean Corpuscular Hemoglobin 28.4 pg (27.0-31.0); Mean Platelet Volume 7.6 fL (7.4-10.4); Platelet Count 355 thou/uL (130-400); RBC Distribution Width 13.9 % (11.5-14.5); Red Blood Cell (RBC) Count 4.33 mill/uL (4.70-6.10); White Blood Cell (WBC) Count 11.3 thou/uL (4.8-10.8)
[2018-07-24 05:38] LABS: Anion Gap 15 mmol/L (10-20); BUN (Urea Nitrogen) 8 mg/dL (8.4-25.7); Calc. Creatinine Clearance 73 mL/min (70-130); Calcium 9.6 mg/dL (7.8-10.44); Carbon Dioxide 23 mmol/L (23-31); Chloride 96 mmol/L (98-107); Estimated GFR-MDRD Greater than 90; Glucose 111 mg/dL (83-110); Potassium 3.6 mmol/L (3.5-5.1); Sodium 130 mmol/L (136-145)
[2018-07-24] MEDS ORDERED: Metoprolol Tartrate 25 MG TAB PO SCH ×2 (09:00→16:30)
[2018-07-24] MEDS: Hydrochlorothiazide 25 MG TAB PO SCH (09:22)
[2018-07-24] MEDS: Calcium/Multivitamins W-Iron 1 TAB TAB PO SCH (09:22)
[2018-07-24] MEDS: levETIRAcetam 500 MG TAB PO SCH ×2 (09:23→21:57)
[2018-07-24] MEDS: Clopidogrel Bisulfate 75 MG TAB PO SCH (09:23)
[2018-07-24] MEDS: Sodium Chloride 0.9% 1,000 ML IV SCH ×2 (09:31→21:58)
[2018-07-24] MEDS: Acetaminophen 325 MG TAB PO PRN (11:40)
[2018-07-24 15:25] LABS: Bilirubin Negative (Negative); Blood, Urine Large (Negative); Clarity CLEAR (Clear); Glucose, Urine (Dipstick) Negative (Negative); Leukocyte Moderate (Negative); Nitrite Negative (Negative); Protein, Urine (Dipstick) 30 mg/dL (Neg-Trace); Specific Gravity, Urine 1.018 (1.002-1.036)
[2018-07-24 15:28] LABS: Bacteria/HPF None Seen HPF (None Seen); Hyaline Casts/LPF 0-3 HYALINE CAST LPF (0-3 Hyaline); RBC/HPF GREATER THAN 50-TNTC HPF (0-3); Squamous Epithelial 0-3 HPF (0-3)
--- NOTE | 2018-07-24 16:27 | PDOC.PN ---
- Subjective Encounter Start Date: 07/24/18 Encounter Start Time: 10:30 Subjective: Patient examined today, answers some questions -: Denies any pain, is restless and trying to get out of bed -: Has a eisenberg in place draining - Objective Resuscitation Status - Order Detail: 07/23/18 21:30 Resuscitation Status Routine Resuscitation Status: FULL: Full Resuscitation Vital Signs & Weight: Vital Signs (12 hours) Temp Pulse Resp BP Pulse Ox 07/24/18 16:00 97.6 F 114 H 20 173/80 H 94 L 07/24/18 12:00 98 F 106 H 18 109/62 98 07/24/18 08:00 97.7 F 119 H 18 146/71 H 96 Weight Weight 62.868 kg I&O: 07/23/18 07/24/18 07/25/18 06:59 06:59 06:59 Intake Total 100 Output Total 1250 Balance -1150 Result Diagrams: 07/24/18 04:47 07/24/18 04:47 Additional Labs: Accuchecks 07/23/18 18:18 POC Glucose 102 Phys Exam - Physical Examination Restless, confused HEENT: PERRLA, moist MMs Neck: no nodes Respiratory: clear to auscultation bilateral Cardiovascular: RRR, irregular tachycardic Gastrointestinal: soft Neurological: non-focal, moves all 4 limbs Deviation from normal: Oriented to self Skin: cap refill <2 seconds Deviation from normal: multiple areas of ecchymosis Dx/Plan (1) Encephalopathy Code(s): G93.40 - ENCEPHALOPATHY, UNSPECIFIED Status: Acute (2) Seizures Code(s): R56.9 - UNSPECIFIED CONVULSIONS Status: Acute (3) Urinary retention Code(s): R33.9 - RETENTION OF URINE, UNSPECIFIED Status: Acute (4) History of subarachnoid hemorrhage Code(s): Z86.79 - PERSONAL HISTORY OF OTHER DISEASES OF THE CIRCULATORY SYSTEM Status: Chronic (5) Chronic anticoagulation Code(s): Z79.01 - CL[place] (CURRENT) USE OF ANTICOAGULANTS Status: Chronic (6) Atrial fibrillation Code(s): I48.91 - UNSPECIFIED ATRIAL FIBRILLATION Status: Chronic - Plan cont current plan of care Increase betablockers, has eisenberg in place -: Neurosurgery following, will consult Cardiology if HR does not improve -: UC pending, -: Discussed plan with Dr. Vergara who agrees * .
[2018-07-24] MEDS: Metoprolol Tartrate 25 MG TAB PO SCH (21:57)
[2018-07-24] MEDS: Atorvastatin Calcium 40 MG TAB PO SCH (21:57)
[2018-07-24] MEDS: BIMATOPROST EA EYE SCH (21:58)
--- NOTE | 2018-07-25 07:07 | PRG ---
DATE OF SERVICE: 07/24/2018 SUBJECTIVE: Mr. Hernandez is an 87-year-old male known to our practice for inpatient admission status post fall a few weeks ago with traumatic subarachnoid hemorrhage and contusion. He was evaluated upon followup in the outpatient setting, where he had repeat imaging, which revealed the presence of subdural hygroma over the right cerebral convexity. Neurologically, he was at baseline. He was admitted last evening secondary to witnessed generalized seizure. He was given Ativan as well as started on antiepileptics and admitted to the hospital. He was postictal upon presentation to the ER. Had a repeat CT examination performed, which showed persistent hygroma, but no changes compared to the previous CT scan performed nearly a week prior to that time. I visited with him in his room on the stroke unit this morning. He is alert and oriented 3/5. He moves all 4 extremities well. At this point in time, he does remain confused with respect to place and year. He does complain of some axial neck pain, which according to his has been present for quite some time, but given the recent setting of generalized seizure, it would be worthwhile to obtain a plain film x-ray of the cervical spine. I also had a lengthy discussion with the regarding his most recent imaging as well as his recent current examination. The plan from neurological perspective will be ongoing evaluation by our Medicine Team. It is conceivable that his seizure is a byproduct of recent head injury versus isolated symptom from subdural hygroma, although he has no significant mass effect or midline shift. He has no lateralizing findings currently. I have explained to the and the plan is not to treat this surgically at this point in time, as I do not believe he is at risk for any herniation syndrome or other precipitous neurologic change. I would like to give him another 24 hours to see how he improves clinically, as some of the medicines that he was given in the ER are metabolized. We will continue to follow along closely. Job ID: [id number] MTDD
--- NOTE | 2018-07-25 09:20 | RAD ---
Cervical spine: 5 views Indications seizure. Neck pain. COMPARISON: CT cervical spine 06/23/2018 Severe degenerative changes cervical spine again noted. Anterolisthesis at C3-4 appears stable from t he prior CT. Anterior wedging of the C4 C5 C6 vertebra appear stable. Posterior spondylosis and anterior spurring again noted. Prominent facet hypertrophy again noted. IMPRESSION: Severe degenerative changes. Cervical spine appears stable from CT scan 06/23/2018
[2018-07-25] MEDS: Hydrochlorothiazide 25 MG TAB PO SCH (09:29)
[2018-07-25] MEDS: Metoprolol Tartrate 25 MG TAB PO SCH ×2 (09:30→20:53)
[2018-07-25] MEDS: Calcium/Multivitamins W-Iron 1 TAB TAB PO SCH (09:31)
[2018-07-25] MEDS: Clopidogrel Bisulfate 75 MG TAB PO SCH (09:31)
[2018-07-25] MEDS: levETIRAcetam 500 MG TAB PO SCH ×2 (09:31→20:53)
[2018-07-25] MEDS: Sodium Chloride 0.9% 1,000 ML IV SCH (09:31)
[2018-07-25] MEDS: Acetaminophen 325 MG TAB PO PRN ×3 (09:45→20:53)
--- NOTE | 2018-07-25 14:23 | PRG ---
DATE OF SERVICE: 07/25/2018 SUBJECTIVE: Mr. Hernandez was admitted two days ago for onset of seizure activity. This morning, he is still somewhat confused, although sounds to be somewhat better than yesterday. He recognizes that he is in the hospital, though calls it [facility]. He does know the month and the year correctly and is able to tell me. He does not have any pain. He moves all 4 extremities Equivalently with equivalent strength in the bilateral upper and lower extremities. Extraocular movements are intact. Facial movements are intact bilaterally. No asymmetry is noted. It does appear that based on UA yesterday afternoon, he has what looks like something concerning for UTI, which could also be confounding for his symptoms of confusion and encephalopathy. We will continue to follow along. At this time, we are planning still no surgical intervention. Job ID: [id number]
[2018-07-25] MEDS: Atorvastatin Calcium 40 MG TAB PO SCH (20:53)
[2018-07-25] MEDS: BIMATOPROST EA EYE SCH (20:53)
[2018-07-26] MEDS: Sodium Chloride 0.9% 1,000 ML IV SCH ×2 (02:01→16:34)
[2018-07-26 08:58] LABS: #Eosinphils 0.1 thou/uL (0.0-0.7); #Lymphocytes 1.6 thou/uL (1.20-3.40); #Monocytes 0.8 thou/uL (0.11-0.59); #Neutrophils 7.5 thou/uL (1.40-6.50); %Basophils 0.5 % (0.0-1.0); %Eosinophils 0.8 % (0.0-10.0); %Neutrophils 74.8 % (42.0-75.0); Hemoglobin 11.2 g/dL (14.0-18.0); Mean Corpuscular HGB CONC 33.6 g/dL (32.0-36.0); Mean Corpuscular Hemoglobin 29.9 pg (27.0-31.0); Mean Platelet Volume 7.4 fL (7.4-10.4); Platelet Count 240 thou/uL (130-400); RBC Distribution Width 13.6 % (11.5-14.5); Red Blood Cell (RBC) Count 3.74 mill/uL (4.70-6.10)
[2018-07-26] MEDS: Metoprolol Tartrate 25 MG TAB PO SCH ×2 (09:07→22:28)
[2018-07-26 09:08] LABS: Anion Gap 12 mmol/L (10-20); BUN (Urea Nitrogen) 7 mg/dL (8.4-25.7); Calc. Creatinine Clearance 77 mL/min (70-130); Calcium 9.1 mg/dL (7.8-10.44); Carbon Dioxide 27 mmol/L (23-31); Chloride 98 mmol/L (98-107); Estimated GFR-MDRD Greater than 90; Glucose 86 mg/dL (83-110); Potassium 3.5 mmol/L (3.5-5.1); Sodium 133 mmol/L (136-145)
[2018-07-26] MEDS: Hydrochlorothiazide 25 MG TAB PO SCH (09:11)
[2018-07-26] MEDS: levETIRAcetam 500 MG TAB PO SCH ×2 (09:12→22:29)
[2018-07-26] MEDS: Calcium/Multivitamins W-Iron 1 TAB TAB PO SCH (09:12)
[2018-07-26] MEDS: Clopidogrel Bisulfate 75 MG TAB PO SCH (09:12)
--- NOTE | 2018-07-26 10:44 | RAD ---
LEFT WRIST THREE VIEWS: HISTORY: Pain following a recent fall. FINDINGS: There is soft tissue swelling of the wrist. Heterogeneous bony demineralization. Arthrosis changes are noted, including the triscaphe region and the trapezium first metacarpal joint with hypertrophic osteophytosis. No evidence for acute fracture or dislocation. IMPRESSION: Bony demineralization and degenerative change with soft tissue swelling without acute fracture. If the patient has persistent or worsening unexplained pain, a follow-up study in 5-7 days or additio nal imaging should be considered. POS: LOLI
[2018-07-26] MEDS: Acetaminophen 325 MG TAB PO PRN ×2 (11:16→17:56)
--- NOTE | 2018-07-26 11:24 | PRG ---
DATE OF SERVICE: 07/26/2018 SUBJECTIVE: Mr. Hernandez remains in the stroke Unit. I examined him today and interacted with him today and he has shown an improvement in his exam. He is 4/5 on questioning. He is more spry with his answers than he was at the time of our last encounter. He remains strong throughout in the upper and lower extremities bilaterally. PLAN: Plan for the time being will remain nonsurgical management. We will reach out the Case Management in an effort to try to get him to the rehab setting. I will have this discussion again with his today. Job ID: [id number]
--- NOTE | 2018-07-26 16:24 | PDOC.PN ---
- Subjective Encounter Start Date: 07/25/18 Encounter Start Time: 09:30 Subjective: Patient examined, A&O x2, answers some questions -: Refuses to answer others, is less confused today - Objective Resuscitation Status - Order Detail: 07/23/18 21:30 Resuscitation Status Routine Resuscitation Status: FULL: Full Resuscitation Vital Signs & Weight: Vital Signs (12 hours) Temp Pulse Pulse Pulse Resp BP BP 07/26/18 15:00 99.5 F 91 16 07/26/18 14:19 85 70 151/88 H 138/94 H 07/26/18 11:27 98.5 F 96 18 07/26/18 07:55 97.9 F 96 16 BP Pulse Ox 07/26/18 15:00 147/92 H 95 07/26/18 14:19 07/26/18 11:27 136/77 98 07/26/18 07:55 140/83 97 Weight Weight 62.868 kg I&O: 07/25/18 07/26/18 07/27/18 06:59 06:59 06:59 Intake Total 1250 2462.5 Output Total 1000 2400 2600 Balance 250 62.5 -2600 Result Diagrams: 07/26/18 08:41 07/26/18 08:41 Phys Exam - Physical Examination HEENT: PERRLA, moist MMs Neck: no nodes Respiratory: clear to auscultation bilateral Cardiovascular: RRR Gastrointestinal: soft Musculoskeletal: pulses present Left sided weakness Psychiatric: normal affect Skin: cap refill <2 seconds Dx/Plan (1) Encephalopathy Code(s): G93.40 - ENCEPHALOPATHY, UNSPECIFIED Status: Acute (2) Seizures Code(s): R56.9 - UNSPECIFIED CONVULSIONS Status: Acute (3) Urinary retention Code(s): R33.9 - RETENTION OF URINE, UNSPECIFIED Status: Acute (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
--- NOTE | 2018-07-26 16:28 | PDOC.PN ---
- Subjective Encounter Start Date: 07/26/18 Encounter Start Time: 10:00 Subjective: patient examined, c/o of left wrist tenderness, -: no overnight events - Objective Resuscitation Status - Order Detail: 07/23/18 21:30 Resuscitation Status Routine Resuscitation Status: FULL: Full Resuscitation Vital Signs & Weight: Vital Signs (12 hours) Temp Pulse Pulse Pulse Resp BP BP 07/26/18 15:00 99.5 F 91 16 07/26/18 14:19 85 70 151/88 H 138/94 H 07/26/18 11:27 98.5 F 96 18 07/26/18 07:55 97.9 F 96 16 BP Pulse Ox 07/26/18 15:00 147/92 H 95 07/26/18 14:19 07/26/18 11:27 136/77 98 07/26/18 07:55 140/83 97 Weight Weight 62.868 kg I&O: 07/25/18 07/26/18 07/27/18 06:59 06:59 06:59 Intake Total 1250 2462.5 Output Total 1000 2400 2600 Balance 250 62.5 -2600 Result Diagrams: 07/26/18 08:41 07/26/18 08:41 Phys Exam - Physical Examination HEENT: PERRLA, moist MMs Neck: no nodes Respiratory: clear to auscultation bilateral Cardiovascular: RRR Gastrointestinal: soft, positive bowel sounds left wrist tenderness to palpation, full ROM left sided weakness Neurological: moves all 4 limbs Lymphatic: no nodes Deviation from normal: A&O x2 Dx/Plan (1) Encephalopathy Code(s): G93.40 - ENCEPHALOPATHY, UNSPECIFIED Status: Acute (2) Seizures Code(s): R56.9 - UNSPECIFIED CONVULSIONS Status: Acute (3) Urinary retention Code(s): R33.9 - RETENTION OF URINE, UNSPECIFIED Status: Acute (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
[2018-07-26] MEDS: Atorvastatin Calcium 40 MG TAB PO SCH (22:28)
[2018-07-27] MEDS: BIMATOPROST EA EYE SCH (04:57)
[2018-07-27] MEDS: Acetaminophen 325 MG TAB PO PRN ×2 (05:14→11:01)
[2018-07-27] MEDS: Sodium Chloride 0.9% 1,000 ML IV SCH (05:15)
[2018-07-27 05:43] LABS: #Lymphocytes 1.8 thou/uL (1.20-3.40); #Monocytes 1.1 thou/uL (0.11-0.59); %Basophils 0.3 % (0.0-1.0); %Eosinophils 0.4 % (0.0-10.0); %Lymphocytes 18.4 % (21.0-51.0); %Monocytes 10.5 % (0.0-10.0); %Neutrophils 70.3 % (42.0-75.0); Hemoglobin 10.5 g/dL (14.0-18.0); Mean Corpuscular HGB CONC 33.1 g/dL (32.0-36.0); Mean Corpuscular Hemoglobin 29.5 pg (27.0-31.0); Mean Platelet Volume 7.4 fL (7.4-10.4); Platelet Count 243 thou/uL (130-400); RBC Distribution Width 13.3 % (11.5-14.5); Red Blood Cell (RBC) Count 3.57 mill/uL (4.70-6.10)
[2018-07-27 06:04] LABS: Anion Gap 13 mmol/L (10-20); BUN (Urea Nitrogen) 7 mg/dL (8.4-25.7); Calc. Creatinine Clearance 83 mL/min (70-130); Carbon Dioxide 24 mmol/L (23-31); Chloride 98 mmol/L (98-107); Estimated GFR-MDRD Greater than 90; Glucose 99 mg/dL (83-110); Potassium 3.3 mmol/L (3.5-5.1); Sodium 132 mmol/L (136-145)
[2018-07-27] MEDS: Hydrochlorothiazide 25 MG TAB PO SCH (09:46)
[2018-07-27] MEDS: Clopidogrel Bisulfate 75 MG TAB PO SCH (09:47)
[2018-07-27] MEDS: Metoprolol Tartrate 25 MG TAB PO SCH (09:47)
[2018-07-27] MEDS: Calcium/Multivitamins W-Iron 1 TAB TAB PO SCH (09:47)
[2018-07-27] MEDS: levETIRAcetam 500 MG TAB PO SCH (09:47)
[2018-07-27] MEDS ORDERED: cloNIDine 0.1 MG TAB PO PRN (16:15)
[2018-07-27 16:55] VITALS: BP 179/105; TEMP 98.4
--- NOTE | 2018-07-27 19:38 | EKG ---
Test Reason : ER INDICATION Blood Pressure : / mmHG Vent. Rate : 109 BPM Atrial Rate : 115 BPM P-R Int : 000 ms QRS Dur : 094 ms QT Int : 352 ms P-R-T Axes : 000 -51 060 degrees QTc Int : 474 ms Accelerated Junctional rhythm with retrograde conduction with occasional Premature ventricular comple xes Incomplete right bundle branch block Left anterior fascicular block Abnormal ECG Confirmed by JONATHAN MOSS DO ([id number]), newspaper copy editor PIERO SWEENEY ([id number]) on 07/27/2018 7:37:22 PM Referred By: Confirmed By:JONATHAN MOSS DO
[2018-07-28] MEDS ORDERED: Potassium Chloride 20 MEQ TAB PO SCH (08:00)
== END 2018-07-27 17:03 ==
LOC: ERS 16:29 → INTOOBSV 20:02 → 2SE 20:02
PROVIDERS: ADMIT Family Medicine; ATTEND Family Medicine
DX: G93.40 Encephalopathy, unspecified (principal); E87.1 Hypo-osmolality and hyponatremia; I10 Essential (primary) hypertension; R19.7 Diarrhea, unspecified; I25.10 Atherosclerotic heart disease of native coronary artery without angina pectoris; E78.00 Pure hypercholesterolemia, unspecified; E78.5 Hyperlipidemia, unspecified; R73.9 Hyperglycemia, unspecified; Z79.82 Long term (current) use of aspirin; Z79.899 Other long term (current) drug therapy
CPT/HCPCS: 51702; 70450; 72040; 73110; 80048 ×3; 80053; 81001; 82550; 82553; 82962; 83735; 84484; 85025 ×4; 85610; 85730; 87086; 93005; 96361 ×5; 96365; 96375; 97110; 97116; 97139 ×3; 97530; 99285; G0378 ×3; 36415; 36416; 81003; 81015; J1953; J2270; J2405

== ENCOUNTER 2018-08-06 14:13 | Outpatient (CLI) | payer MEDICARE ==
--- NOTE | 2018-08-06 14:41 | CT ---
CT head noncontrast HISTORY: Subdural hematoma. COMPARISON: 08/01/2018. FINDINGS: There is no evidence of acute intracranial hemorrhage or infarct. Small right frontoparieta l subdural fluid collection is unchanged in size and appearance from the previous study. Predominantly hypodense with some internal heterogeneous mixed density. Very slight effacement of the right frontal lobe. Septum pellucidum remains midline. Fluid layers within the dependent portion of the sphenoid sinus, unchanged in appearance. IMPRESSION: Stable CT appearance of resolving, now small right subdural hematoma. No new abnormalitie s are demonstrated.
== END 2018-08-06 14:14 | disposition home or self-care (01) ==
LOC: CT 14:13
PROVIDERS: ATTEND Neurological Surgery
DX: I62.00 Nontraumatic subdural hemorrhage, unspecified (principal)
CPT/HCPCS: 70450

== ENCOUNTER 2018-08-22 09:33 | Outpatient (CLI) | payer MEDICARE ==
--- NOTE | 2018-08-22 11:33 | CT ---
CT BRAIN NONCONTRAST: DATE: 08/22/18 HISTORY: Follow-up subdural hematoma in 88-year-old male. COMPARISON: 08/06/18. FINDINGS: Again noted is the mixed age small right supratentorial subdural hematoma. When measured in the trans verse dimension at the same location of the upper aspect of the calvarium, the same transverse dimens ion of approximately 12 mm is obtained. It continues to contain mixed low attenuation and intermediat e attenuation components of blood. Minimal displacement of right upper frontoparietal gyri. No signif icant midline shift of the septum pellucidum. No obstructive hydrocephalus. No new hemorrhage. Calvar ium is intact. IMPRESSION: No significant interval change in the mixed age (including subacute components) of small right suprat entorial subdural hematoma. JN R POS: CET
== END 2018-08-22 09:34 | disposition home or self-care (01) ==
LOC: TBSIIMAG 09:33
PROVIDERS: ATTEND Neurological Surgery
DX: I62.00 Nontraumatic subdural hemorrhage, unspecified (principal)
CPT/HCPCS: 70450

== ENCOUNTER 2021-08-25 10:48 | Inpatient (IN) | payer MEDICARE ==
[~2021-08-25 10:48] MED LIST changes: -ISOVUE-370 76%-LOCM 1 ML ONE; +Iopamidol-370 76% 500 ML 1 ML ONE
[2021-08-25] MEDS ORDERED: Morphine 4 MG/ML VIAL ONE (11:58)
[2021-08-25] MEDS ORDERED: Ondansetron PF 4 MG/2 ML Vial ONE (11:58)
[2021-08-25 12:20] LABS: Hemoglobin 12.7 g/dL (14.0-18.0); Mean Corpuscular Hemoglobin 26.8 pg (27.0-31.0); Mean Corpuscular Volume 83.8 fL (78.0-98.0); Mean Platelet Volume 7.1 fL (7.4-10.4); Platelet Count 328 thou/uL (130-400); RBC Distribution Width 14.3 % (11.5-14.5); Red Blood Cell (RBC) Count 4.74 mill/uL (4.70-6.10); White Blood Cell (WBC) Count 21.7 thou/uL (4.8-10.8)
[2021-08-25 12:46] LABS: Band 12 % (5-11); Lymphocytes 9 % (21-51); MDiff Complete? YES; Monocytes 8 % (0-10); Neutrophil 71 % (42-75); Platelet Morphology Comment Appears Adequate; RBC Morphology Normal
[2021-08-25 12:49] LABS: ALT (SGPT) 136 U/L (8-55); AST (SGOT) 149 U/L (5-34); Albumin 4.1 g/dL (3.4-4.8); Alkaline Phosphatase 122 U/L (40-110); Anion Gap 16 mmol/L (10-20); BUN (Urea Nitrogen) 16 mg/dL (8.4-25.7); Bilirubin, Total 1.6 mg/dL (0.2-1.2); Calc. Creatinine Clearance 0 mL/min (70-130); Calcium 9.6 mg/dL (7.8-10.44); Carbon Dioxide 25 mmol/L (23-31); Chloride 95 mmol/L (98-107); Globulin 3.8 g/dL (2.4-3.5); Glucose 100 mg/dL (83-110); Lipase 41 U/L (8-78); Potassium 4.2 mmol/L (3.5-5.1); Protein, Total 7.9 g/dL (5.8-8.1); Sodium 132 mmol/L (136-145)
[2021-08-25 12:51] LABS: Bilirubin Moderate (Negative); Blood, Urine Negative (Negative); Glucose, Urine (Dipstick) Negative (Negative); Ketone, Urine 15 mg/dL (Negative); Leukocyte Negative (Negative); Nitrite Negative (Negative); Protein, Urine (Dipstick) 100 mg/dL (Neg-Trace); pH, Urine 5.5 (5.0-9.0)
[2021-08-25] MEDS ORDERED: Piperacillin/Tazobactam 3.375 GM VIAL ONE (12:51)
[2021-08-25 13:14] LABS: Clarity Clear (Clear); Specific Gravity, Urine 1.018 (1.002-1.036)
[2021-08-25 13:15] LABS: Bacteria/HPF Rare-Few HPF (None Seen); Mucous/LPF 1+ LPF (<2+); RBC/HPF None Seen HPF (0-3); Squamous Epithelial None Seen HPF (0-3); WBC/HPF 0-3 HPF (0-3)
[2021-08-25] MEDS ORDERED: Acetaminophen 325 MG TAB PO PRN (15:45)
[2021-08-25] MEDS ORDERED: Ondansetron PF 4 MG/2 ML Vial IVP PRN (15:45)
[2021-08-25] MEDS ORDERED: Ondansetron ODT 4 MG TAB SL PRN (15:45)
[2021-08-25] MEDS ORDERED: Sodium Chloride 0.9% 1,000 ML IV SCH (15:45)
[2021-08-25] MEDS ORDERED: Bisacodyl 5 MG TAB PO PRN (17:26)
[2021-08-25] MEDS ORDERED: Calcium Carbonate 500 MG ChewTAB PO PRN (17:26)
[2021-08-25] MEDS ORDERED: Senokot S 8.6-50 MG TAB PO PRN (17:26)
[2021-08-25 17:29] VITALS: BMI 21.9
[2021-08-25] MEDS ORDERED: Enoxaparin Sodium 40 MG/0.4 ML SYRINGE SC SCH (17:30)
[2021-08-25] MEDS ORDERED: Piperacillin/Tazobactam 3.375 GM in Sodium Chloride 0.9% 100 ML IVPB SCH (18:00)
[2021-08-25] MEDS: Lactated Ringer's 1,000 ML IV SCH (18:07)
[2021-08-25] MEDS ORDERED: hydrALAZINE 20 MG/ML VIAL SLOW IVP PRN (19:13)
[2021-08-25] MEDS ORDERED: Labetalol HCl 100 MG/20 ML VIAL SLOW IVP PRN (19:13)
[2021-08-25] MEDS ORDERED: Moisturizing Cream (Eucerin) 113 GM JAR TOP PRN (19:13)
[2021-08-25] MEDS ORDERED: Sodium Chloride 0.65% Nasal 44 ML BOT EA NARE PRN (19:13)
[2021-08-25] MEDS ORDERED: Acetaminophen 500 MG TAB PO PRN ×2 (19:13)
[2021-08-25] MEDS ORDERED: Ibuprofen 200 MG TAB PO PRN (19:13)
[2021-08-25] MEDS ORDERED: Artificial Tear Sol 15 ML BOT EA EYE PRN (19:13)
[2021-08-25] MEDS ORDERED: HYDROcodone/Acetaminophen 5/325 mg Tablet PO PRN (19:13)
[2021-08-25] MEDS ORDERED: Acetaminophen 650 MG Suppository PR PRN (19:13)
[2021-08-25] MEDS: Enoxaparin Sodium 40 MG/0.4 ML SYRINGE SC SCH (21:06)
[2021-08-25] MEDS: Melatonin 3 MG TAB PO PRN (21:06)
[2021-08-25 22:57] LABS: SARS-CoV-2 NAA Rapid Test Not Detected (NotDetected)
[2021-08-26] MEDS ORDERED: Ondansetron PF 4 MG/2 ML Vial IVP PRN (01:34)
[2021-08-26] MEDS ORDERED: Ondansetron ODT 4 MG TAB SL PRN (01:34)
[2021-08-26] MEDS: Piperacillin/Tazobactam 3.375 GM in Sodium Chloride 0.9% 100 ML IVPB SCH ×3 (01:43→17:33)
[2021-08-26 06:25] LABS: #Basophils 0.1 thou/uL (0.0-0.2); #Monocytes 1.1 thou/uL (0.11-0.59); %Basophils 0.5 % (0.0-1.0); %Eosinophils 0.2 % (0.0-10.0); %Lymphocytes 14.3 % (21.0-51.0); %Monocytes 7.8 % (0.0-10.0); %Neutrophils 77.1 % (42.0-75.0); Hemoglobin 10.2 g/dL (14.0-18.0); Mean Corpuscular HGB CONC 31.7 g/dL (32.0-36.0); Mean Corpuscular Hemoglobin 26.9 pg (27.0-31.0); Mean Corpuscular Volume 84.8 fL (78.0-98.0); Mean Platelet Volume 6.8 fL (7.4-10.4); Platelet Count 275 thou/uL (130-400); RBC Distribution Width 14.3 % (11.5-14.5); Red Blood Cell (RBC) Count 3.81 mill/uL (4.70-6.10); White Blood Cell (WBC) Count 14.3 thou/uL (4.8-10.8)
[2021-08-26 06:30] LABS: INR-International Normal Ratio 1.2; Prothrombin Time 15.5 sec (12.0-14.7)
[2021-08-26 06:31] LABS: PTT 44.2 sec (22.9-36.1)
[2021-08-26] MEDS: Lactated Ringer's 1,000 ML IV SCH ×2 (06:44→23:33)
[2021-08-26 06:56] LABS: ALT (SGPT) 77 U/L (8-55); AST (SGOT) 58 U/L (5-34); Albumin 3.3 g/dL (3.4-4.8); Alkaline Phosphatase 95 U/L (40-110); Anion Gap 12 mmol/L (10-20); BUN (Urea Nitrogen) 19 mg/dL (8.4-25.7); Bilirubin, Total 1.2 mg/dL (0.2-1.2); Calc. Creatinine Clearance 56 mL/min (70-130); Calcium 8.8 mg/dL (7.8-10.44); Carbon Dioxide 24 mmol/L (23-31); Chloride 98 mmol/L (98-107); Globulin 2.9 g/dL (2.4-3.5); Glucose 76 mg/dL (83-110); Lipase 22 U/L (8-78); Potassium 3.4 mmol/L (3.5-5.1); Protein, Total 6.2 g/dL (5.8-8.1); Sodium 131 mmol/L (136-145)
[2021-08-26] MEDS ORDERED: Indomethacin 50 MG SUPP ONE (10:01)
[2021-08-26] MEDS ORDERED: Iopamidol 30 ML ONE (10:04)
[2021-08-26] MEDS ORDERED: Fentanyl 100 MCG/2 ML VIAL ONE (10:11)
[2021-08-26] MEDS ORDERED: Ondansetron HCl/PF 4 MG/2 ML Vial IVP PRN (10:11)
[2021-08-26] MEDS ORDERED: Rocuronium Bromide 10 MG/ML (10ML VIAL) ONE (10:16)
[2021-08-26] MEDS ORDERED: PROPOFOL 200 MG/20 ML VIAL ONE (10:16)
[2021-08-26] MEDS ORDERED: Ondansetron PF 4 MG/2 ML Vial ONE (10:16)
[2021-08-26] MEDS ORDERED: Dexamethasone 20 MG/5 ML VIAL ONE (10:16)
[2021-08-26] MEDS ORDERED: Lidocaine 1% PF 5 ML VIAL ONE (10:16)
[2021-08-26] MEDS ORDERED: Sodium Chloride 0.9% 500 ML IV SCH (11:00)
[2021-08-26] MEDS: Enoxaparin Sodium 40 MG/0.4 ML SYRINGE SC SCH (20:54)
[2021-08-27] MEDS: Piperacillin/Tazobactam 3.375 GM in Sodium Chloride 0.9% 100 ML IVPB SCH ×3 (01:10→18:29)
[2021-08-27 05:57] LABS: #Monocytes 0.6 thou/uL (0.11-0.59); #Neutrophils 7.5 thou/uL (1.40-6.50); %Basophils 0.4 % (0.0-1.0); %Eosinophils 0.1 % (0.0-10.0); %Monocytes 6.4 % (0.0-10.0); %Neutrophils 82.2 % (42.0-75.0); Hemoglobin 9.4 g/dL (14.0-18.0); Mean Corpuscular Hemoglobin 27.3 pg (27.0-31.0); Mean Corpuscular Volume 85.5 fL (78.0-98.0); Mean Platelet Volume 7.2 fL (7.4-10.4); Platelet Count 264 thou/uL (130-400); RBC Distribution Width 14.1 % (11.5-14.5); Red Blood Cell (RBC) Count 3.45 mill/uL (4.70-6.10); White Blood Cell (WBC) Count 9.1 thou/uL (4.8-10.8)
[2021-08-27 06:32] LABS: ALT (SGPT) 78 U/L (8-55); AST (SGOT) 61 U/L (5-34); Albumin 3.1 g/dL (3.4-4.8); Alkaline Phosphatase 182 U/L (40-110); Anion Gap 12 mmol/L (10-20); BUN (Urea Nitrogen) 18 mg/dL (8.4-25.7); Bilirubin, Total 1.1 mg/dL (0.2-1.2); Calc. Creatinine Clearance 60 mL/min (70-130); Calcium 8.6 mg/dL (7.8-10.44); Carbon Dioxide 26 mmol/L (23-31); Chloride 100 mmol/L (98-107); Globulin 2.8 g/dL (2.4-3.5); Glucose 106 mg/dL (83-110); Lipase 22 U/L (8-78); Potassium 4.1 mmol/L (3.5-5.1); Protein, Total 5.9 g/dL (5.8-8.1); Sodium 134 mmol/L (136-145)
[2021-08-27] MEDS: Lactated Ringer's 1,000 ML IV SCH ×2 (08:53→22:12)
[2021-08-27] MEDS: Melatonin 3 MG TAB PO PRN (20:14)
[2021-08-27] MEDS: Enoxaparin Sodium 40 MG/0.4 ML SYRINGE SC SCH (20:14)
[2021-08-28] MEDS: Piperacillin/Tazobactam 3.375 GM in Sodium Chloride 0.9% 100 ML IVPB SCH ×2 (01:31→08:59)
[2021-08-28] MEDS: Lactated Ringer's 1,000 ML IV SCH ×2 (01:37→13:05)
[2021-08-28 06:53] LABS: #Basophils 0.1 thou/uL (0.0-0.2); #Lymphocytes 2.5 thou/uL (1.20-3.40); #Monocytes 0.8 thou/uL (0.11-0.59); #Neutrophils 5.3 thou/uL (1.40-6.50); %Basophils 0.7 % (0.0-1.0); %Eosinophils 0.6 % (0.0-10.0); %Lymphocytes 28.7 % (21.0-51.0); %Monocytes 8.9 % (0.0-10.0); %Neutrophils 61.1 % (42.0-75.0); Hemoglobin 9.2 g/dL (14.0-18.0); Mean Corpuscular Hemoglobin 27.4 pg (27.0-31.0); Mean Corpuscular Volume 85.5 fL (78.0-98.0); Mean Platelet Volume 7.2 fL (7.4-10.4); Platelet Count 274 thou/uL (130-400); RBC Distribution Width 14.2 % (11.5-14.5); Red Blood Cell (RBC) Count 3.35 mill/uL (4.70-6.10); White Blood Cell (WBC) Count 8.7 thou/uL (4.8-10.8)
[2021-08-28 07:19] LABS: ALT (SGPT) 52 U/L (8-55); AST (SGOT) 31 U/L (5-34); Albumin 3.1 g/dL (3.4-4.8); Alkaline Phosphatase 135 U/L (40-110); Anion Gap 13 mmol/L (10-20); BUN (Urea Nitrogen) 14 mg/dL (8.4-25.7); Bilirubin, Total 0.9 mg/dL (0.2-1.2); Calc. Creatinine Clearance 56 mL/min (70-130); Calcium 8.3 mg/dL (7.8-10.44); Carbon Dioxide 27 mmol/L (23-31); Chloride 102 mmol/L (98-107); Globulin 2.6 g/dL (2.4-3.5); Glucose 85 mg/dL (83-110); Potassium 3.6 mmol/L (3.5-5.1); Protein, Total 5.7 g/dL (5.8-8.1); Sodium 138 mmol/L (136-145)
[2021-08-28 08:07] VITALS: BP 142/84; TEMP 98
== END 2021-08-28 13:55 | disposition home or self-care (01) | DRG 872 ==
LOC: ERS 10:48 → SURG A 14:49
PROVIDERS: ADMIT Family Medicine; ATTEND Nurse Practitioner Family
PROC: 0F798ZZ Dilation of Common Bile Duct, Via Natural or Artificial Opening Endoscopic (ICD-10-PCS; principal; 2021-08-26)
PROC: BF111ZZ Fluoroscopy of Biliary and Pancreatic Ducts using Low Osmolar Contrast (ICD-10-PCS; 2021-08-26)
DX: A41.9 Sepsis, unspecified organism (principal); K57.12 Diverticulitis of small intestine without perforation or abscess without bleeding; K80.51 Calculus of bile duct without cholangitis or cholecystitis with obstruction; I25.10 Atherosclerotic heart disease of native coronary artery without angina pectoris; K57.10 Diverticulosis of small intestine without perforation or abscess without bleeding; K83.8 Other specified diseases of biliary tract; Z20.822 Contact with and (suspected) exposure to COVID-19; Z90.49 Acquired absence of other specified parts of digestive tract; Z87.891 Personal history of nicotine dependence; Z79.899 Other long term (current) drug therapy
CPT/HCPCS: 36415; 71045; 74177; 74330; 76705; 80053; 81003; 81015; 83605; 83690; 85025; 85610; 85730; 87040; 93005; 93010; 96361; 96365; 96374; 96375; C1725; J1100; J1650; J2270; J2405; J2543; J2704; J3010; J3490; J7120; Q9967; U0002